=== PATIENT | male | born 1975 | race Caucasian/White ===

== ENCOUNTER 2017-09-10 09:36 | Emergency (ER) | payer BC ==
[2017-09-10] MEDS: KETOROLAC 60 MG INJ IM (11:41)
[2017-09-10] MEDS: ACETAMINOPHEN 325 MG TAB PO (11:42)
== END 2017-09-10 12:10 | disposition home or self-care (01) ==
LOC: FTE 09:36
DX: R05 Cough (principal); R50.9 Fever, unspecified
CPT/HCPCS: 96372; 99284-25

== ENCOUNTER 2017-09-16 04:51 | Emergency (ER) | payer BC ==
[2017-09-16] MEDS: LIDOCAINE 1% (MDV) 20 ML INJ SC (05:22)
[2017-09-16] MEDS: DIPHTH/TET/ACEL PERTUSS (ADULT) 0.5 ML VIAL IM* (05:22)
[2017-09-16 06:01] LABS: ADD MAN DIFF? NO
[2017-09-16 06:02] LABS: WHITE BLOOD COUNT 5.8 10^3/ul (4.8-10.8)
[2017-09-16 06:02] LABS: BASOPHILS % 0.7 % (0.0-2.0); EOSINOPHILS # 0.3 10^3/ul (0.0-0.5); HEMATOCRIT 40.2 % (42.0-52.0); HEMOGLOBIN 13.6 g/dl (14.0-18.0); LYMPHOCYTES # 1.8 10^3/ul (0.8-2.9); LYMPHOCYTES % 30.7 % (15.0-51.0); MEAN CORPUSCULAR HEMOGLOBIN 28.3 pg (29.0-33.0); MEAN CORPUSCULAR HGB CONC 33.8 g/dl (32.0-37.0); MEAN CORPUSCULAR VOLUME 83.6 fl (82.0-101.0); MEAN PLATELET VOLUME 8.9 fl (7.4-10.4); MONOCYTE # 0.3 10^3/ul (0.3-0.9); MONOCYTES % 5.8 % (0.0-11.0); NEUTROPHIL # 3.3 10^3/ul (1.6-7.5); NEUTROPHILS % 56.6 % (39.0-77.0); PLATELET COUNT 265 10^3/UL (140-415); RED BLOOD COUNT 4.81 10^6/ul (4.70-6.10)
[2017-09-16 06:21] LABS: ALANINE AMINOTRANSFERASE 27 IU/L (13-69); ALBUMIN 4.5 g/dl (3.3-4.9); ALKALINE PHOSPHATASE 54 IU/L (42-121); ANION GAP 21 (8-16); ASPARTATE AMINO TRANSFERASE 24 IU/L (15-46); BILIRUBIN,INDIRECT 0.2 mg/dl (0-1.1); BILIRUBIN,TOTAL 0.2 mg/dl (0.2-1.3); BLOOD UREA NITROGEN 13 mg/dl (7-20); CALCIUM 9.3 mg/dl (8.4-10.2); CARBON DIOXIDE 21 mmol/L (21-31); CHLORIDE 108 mmol/L (97-110); GLUCOSE 103 mg/dl (70-220); POTASSIUM 4.4 mmol/L (3.5-5.1); SODIUM 146 mmol/L (135-144); TOTAL PROTEIN 7.7 g/dl (6.1-8.1)
[2017-09-16 06:28] LABS: ACETAMINOPHEN < 10.0 ug/ml (10.0-30.0); SALICYLATE < 1.0 mg/dl (5.0-30.0)
[2017-09-16 07:49] LABS: ADD UMIC NO; UR ASCORBIC ACID NEGATIVE (NEGATIVE); UR BILIRUBIN (Dip) NEGATIVE (NEGATIVE); UR BLOOD (Dip) NEGATIVE (NEGATIVE); UR CLARITY CLEAR (CLEAR); UR COLOR COLORLESS (YELLOW); UR GLUCOSE (Dip) NEGATIVE (NEGATIVE); UR KETONES (Dip) NEGATIVE (NEGATIVE); UR LEUKOCYTE ESTERASE (Dip) NEGATIVE Leu/ul (NEGATIVE); UR NITRITE (Dip) NEGATIVE (NEGATIVE); UR SPECIFIC GRAVITY (Dip) 1.002 (1.003-1.030); UR TOTAL PROTEIN (Dip) NEGATIVE (NEGATIVE); UR UROBILINOGEN (Dip) NEGATIVE (NEGATIVE)
[2017-09-16 08:21] LABS: AMPHETAMINE/METHAMPHETAMINE Negative (NEGATIVE); BARBITURATES Negative (NEGATIVE); BENZODIAZEPINES Negative (NEGATIVE); CANNABINOIDS Negative (NEGATIVE); COCAINE Positive (NEGATIVE); OPIATES Negative (NEGATIVE)
== END 2017-09-16 07:50 | disposition home or self-care (01) ==
LOC: E/R 04:51
DX: S41.111A Laceration without foreign body of right upper arm, initial encounter (principal); R40.2142 Coma scale, eyes open, spontaneous, at arrival to emergency department; R40.2362 Coma scale, best motor response, obeys commands, at arrival to emergency department; R40.2252 Coma scale, best verbal response, oriented, at arrival to emergency department; X78.8XXA Intentional self-harm by other sharp object, initial encounter; Y92.9 Unspecified place or not applicable; Z23 Encounter for immunization
CPT/HCPCS: 12001; 80053; 80306; 80307; 81003; 85025; 90471; 90715; 99283-25